=== PATIENT | male | born 1985 | race Caucasian/White ===

== ENCOUNTER 2020-05-02 19:41 | Emergency (ER) | payer OTHER ==
[~2020-05-02] VITALS: Ht 162.6 cm; Wt 89.4 kg
[2020-05-02 19:50] VITALS: BP 116/71
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
[2020-05-02] MEDS ORDERED: CYCL-331 PO (20:13)
== END 2020-05-02 20:25 | disposition home or self-care (01) ==
LOC: ER 19:41
DX: S46.812A Strain of other muscles, fascia and tendons at shoulder and upper arm level, left arm, initial encounter (principal); S10.93XA Contusion of unspecified part of neck, initial encounter; S20.222A Contusion of left back wall of thorax, initial encounter; V98.8XXA Other specified transport accidents, initial encounter; Y93.89 Activity, other specified; Y92.89 Other specified places as the place of occurrence of the external cause; Y99.8 Other external cause status
CPT/HCPCS: 99283

== ENCOUNTER 2020-12-30 23:44 | Emergency (ER) | payer OTHER ==
[~2020-12-30] VITALS: Ht 162.6 cm; Wt 89.4 kg
[~2020-12-30 23:44] MED LIST: CYCL-331 PO
[2020-12-31 00:02] VITALS: BP 151/95
[2020-12-31] MEDS ORDERED: IBUPROFEN 600 MG TABLET. PO ONE (01:00)
[2020-12-31] MEDS ORDERED: ACETAMINOPHEN 500 MG TABLET PO ONE (01:00)
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
--- NOTE | 2020-12-31 02:01 | RAD ---
EXAM: 1. Frontal chest with 3 view left rib series. 2. Left shoulder 2 views. 3. Left elbow 3 views. 4. Left wrist 3 views. HISTORY: Injury, pain. COMPARISON: None. FINDINGS: There are no confluent infiltrates. There is no pneumothorax or pleural effusion. The heart is not enlarged. There are no displaced left rib fractures. No fractures are identified within the left shoulder. Acromioclavicular and glenohumeral joint spaces and alignment are maintained. A nondisplaced fracture suspected in the left radial neck. Joint spaces and alignment are maintained. A joint effusion is noted. No fractures are identified in the left wrist. Joint spaces and alignment are maintained. IMPRESSION: 1. Suspect a nondisplaced fracture of the left radial neck. Elbow effusion. Electronically signed by: Richelle Valentin MD (12/31/2020 1:58 AM) [facility] REHABILITATIONJeanne
== END 2020-12-31 01:45 | disposition left against medical advice (07) ==
LOC: ER 23:44
DX: M25.512 Pain in left shoulder (principal); R07.81 Pleurodynia; M25.522 Pain in left elbow; V09.9XXA Pedestrian injured in unspecified transport accident, initial encounter; Y93.89 Activity, other specified; Y92.481 Parking lot as the place of occurrence of the external cause; Y99.8 Other external cause status
CPT/HCPCS: 71101; 73030; 73080; 73110; 99284

== ENCOUNTER → 2021-01-21 | Outpatient (CLI) | payer BC, OTHER ==
[2020-12-31 00:02] VITALS: BP 151/95
--- NOTE | 2021-01-21 13:31 | RAD ---
EXAM: Left wrist, 3 views; left elbow, 3 views. HISTORY: Fracture follow-up. COMPARISON: 12/31/2020. FINDINGS: Left wrist: 3 views of the left wrist are obtained. There is no acute fracture, dislocation or sublux ation. Left elbow: 3 views of the left elbow are obtained. There is a mildly displaced humeral head and neck fracture. There has been no significant interval healing compared to the prior study. The degree of displacement appears to be increased. There is a small elbow effusion. This is decreased compared to the prior exam. IMPRESSION: 1. No significant interval healing of a mildly displaced radial head and neck fracture. Antegrade dis placement appears to be increased. There has been decrease in a joint effusion. 2. No acute osseous finding involving the left wrist. Electronically signed by: Ileana Rosenberg MD (01/21/2021 1:29 PM) [id number]
== END ==
LOC: RAD 09:30
PROVIDERS: ATTEND Orthopaedic Surgery
DX: S63.502A Unspecified sprain of left wrist, initial encounter (principal); S42.402A Unspecified fracture of lower end of left humerus, initial encounter for closed fracture; M25.422 Effusion, left elbow; X58.XXXA Exposure to other specified factors, initial encounter; Y93.89 Activity, other specified; Y92.89 Other specified places as the place of occurrence of the external cause; Y99.8 Other external cause status
CPT/HCPCS: 73080; 73110